=== PATIENT | female | born 1990 | race Two or more races ===

== ENCOUNTER 2019-01-19 17:20 | Day surgery (SDC) | payer OTHER ==
[2019-01-19 18:03] VITALS: BMI 46.4
[2019-01-19 19:39] LABS: Bilirubin Negative (Negative); Blood, Urine Negative (Negative); Clarity CLEAR (Clear); Glucose, Urine (Dipstick) Negative (Negative); Leukocyte Negative (Negative); Nitrite Negative (Negative); Protein, Urine (Dipstick) Negative (Neg-Trace); Specific Gravity, Urine 1.028 (1.002-1.036)
[2019-01-19 19:41] LABS: Bacteria/HPF None Seen HPF (None Seen); Hyaline Casts/LPF 4-6 HYALINE CAST LPF (0-3 Hyaline); Pathc Cast-AUWi Flag 1.22 (0-2.49); RBC/HPF 0-3 HPF (0-3); Squamous Epithelial 0-3 HPF (0-3); WBC/HPF 0-3 HPF (0-3)
[2019-01-19 20:03] LABS: FFN Internal QC Analyzer PASS (PASS); FFN Internal QC Cassette PASS (PASS); Fetal Fibronectin Negative (Negative)
--- NOTE | 2019-01-20 02:01 | ER ---
DATE OF SERVICE: 01/20/2019 PRIMARY MANAGER OF SECURITY: Dr. Joshua Valenzuela. CHIEF COMPLAINT: Abdominal pains. HISTORY OF PRESENT ILLNESS: The patient is a 28-year-old, G3, P2 female with an intrauterine at 24 weeks and 5 days, who left work early today because of worsening abdominal pains. The patient reports that she has been experiencing abdominal pains, concerning to her for uterine contractions. The patient reports that she has a history of labor with her prior , but resulting in a post-term delivery. The patient reports that as the day progressed, her pain just continued to worsen, and states that they have been lasting a minute or so and the bad ones have been 2 to 3 an hour. The patient denies any recent illness, fever, fall, headache, chest pain, shortness of breath, nausea, vomiting, diarrhea, or constipation. She denies any new rashes, hip problems, knee problems, or muscle weakness. She denies any change in discharge, any vaginal bleeding, any urinary urgency or frequency. PAST MEDICAL HISTORY: History of seizures, but off medication for two years. Anemia. PAST SURGICAL HISTORY: Negative. SOCIAL HISTORY: Denies drug, alcohol, or tobacco use. ALLERGIES: LATEX. MEDICATIONS: vitamins. OBSTETRIC LABS: Unavailable at the time of dictation. REVIEW OF SYSTEMS: Per HPI. PHYSICAL EXAMINATION: VITAL SIGNS: Blood pressure 123/76, heart rate of 90, respiratory rate of 18, saturating 95% on room air, temperature 98.7. GENERAL: She appears to be in no acute distress. She is alert and oriented, cooperative, and pleasant to interact with. HEAD: Normocephalic and atraumatic. LUNGS: Clear to auscultation bilaterally. HEART: Has regular rate and rhythm. ABDOMEN: Soft, gravid, nontender. EXTREMITIES: Nontender, nonedematous. She has no CVA tenderness. She does have some SI joint tenderness. : Vulva is without masses, lesions, or erythema. Vagina has minimal discharge, but that is white with some granularity to it. Cervix is visibly closed. VPIII and fibronectin were collected. Cervix on digital exam is closed, thick and high. A heart tracing was obtained, baseline in the 150s with moderate long-term variability and appropriate for 24-week . LABORATORY DATA: Show a negative fibronectin. Urinalysis negative for protein, nitrites, leukocyte esterase, white blood cells, squamous cells, or bacteria. VPIII was collected and was positive for evidence of Gardnerella. No evidence of Trichomonas or Jocelyn. Tocometer shows about 2 or 3 possibly sporadic contractions over an hour and a half. ASSESSMENT AND PLAN: The patient is a 28-year-old female, G3, P2, with an intrauterine at 24 weeks and 5 days, with a history of labor in her previous , who presented today with complaints of abdominal pains. Fetus is reassuring for gestational age. There is no evidence of labor. She does have bacterial vaginosis by evidence on her VPIII, which we will be contacting her to give her those results. The patient has been hydrated by p.o. intake and has been encouraged to maintain good hydration. She has been given instructions to follow up with her primary OB as scheduled. We will be contacting her over the phone before I leave in the morning with the findings of her VPIII results. The patient has been given labor precautions. Job ID: [id number]
--- NOTE | 2019-01-20 18:22 | PDOC.EVN ---
Event Note - Event Note Event Note: +BV on VP3. RX for Flagyl 250 TID x 7 days called to [facility], . Pt. notified at [phone].
== END 2019-01-19 20:20 | disposition home or self-care (01) ==
LOC: L&D/OP 17:20
PROVIDERS: ATTEND Obstetrics & Gynecology
DX: O99.89 Other specified diseases and conditions complicating pregnancy, childbirth and the puerperium (principal); R10.9 Unspecified abdominal pain; O23.592 Infection of other part of genital tract in pregnancy, second trimester; B96.89 Other specified bacterial agents as the cause of diseases classified elsewhere; O99.012 Anemia complicating pregnancy, second trimester; Z3A.24 24 weeks gestation of pregnancy; Z87.51 Personal history of pre-term labor; Z79.899 Other long term (current) drug therapy; Z91.040 Latex allergy status
CPT/HCPCS: 81001; 82731; 87480; 87510; 87660; 99285

== ENCOUNTER 2019-02-23 09:16 | Emergency (ER) | payer OTHER | END 2019-02-23 10:19 | disposition home or self-care (01) | LOC: ERS 09:16 | DX: O99.513 Diseases of the respiratory system complicating pregnancy, third trimester (principal); J06.9 Acute upper respiratory infection, unspecified; J45.909 Unspecified asthma, uncomplicated; O16.3 Unspecified maternal hypertension, third trimester; O99.353 Diseases of the nervous system complicating pregnancy, third trimester; G40.909 Epilepsy, unspecified, not intractable, without status epilepticus; Z3A.30 30 weeks gestation of pregnancy | CPT/HCPCS: 99283 ==

== ENCOUNTER 2019-04-18 05:30 | Inpatient (IN) | payer OTHER ==
--- NOTE | 2019-04-17 19:22 | PDOC.LDHP ---
Labor and Delivery H&P Chief complaint: scheduled induction HPI: 28 y/o at 38 and 0/7 weeks for term medical induction of labor for CHTN. Current gestational age (weeks): 38 Due date: 05/01/19 Grav: 3 Para: 2 Current complications: hypertension Abnormal US findings: No Current medications: pre- vitamins Previous surgical history: none Allergies/Adverse Reactions: Allergies Allergy/AdvReac Type Severity Reaction Status Date / Time Latex, Natural Rubber Allergy Rash Verified 04/09/19 07:15 Social history: none - Physical Exam Vital signs reviewed and normal: yes General: NAD Heart: RRR Lungs: CTAB Abdomen: gravid Extremeties: no edema FHT: category 1 - Assessment L&D Assessment: medically indicated induction - Plan Plan: admit to L&D, cervical ripening
[~2019-04-18 05:30] MED LIST: Lidocaine 1% (PF) 30 ML VIAL SC PRN; NS / Oxytocin 40 units/1000ml 1,000 ML IV PRN; NS w/ Oxytocin 10 units 500 ML IV SCH; Penicillin G Potassium 5 MILL.UNITS in Sodium Chloride 0.9% 100 ML IVPB SCH; Promethazine HCl 25 MG/ML VIAL IM PRN; Zolpidem Tartrate 5 MG TAB PO PRN; hydrALAZINE 20 MG/ML VIAL SLOW IVP PRN
[2019-04-18] MEDS: Lactated Ringer's 1,000 ML IV SCH ×3 (07:45→16:29)
[2019-04-18 07:53] VITALS: BMI 46.9
[2019-04-18 08:13] LABS: Hemoglobin 11.5 g/dL (12.0-16.0); Mean Corpuscular HGB CONC 33.3 g/dL (32.0-36.0); Mean Corpuscular Hemoglobin 29.9 pg (27.0-31.0); Mean Corpuscular Volume 89.7 fL (78.0-98.0); Mean Platelet Volume 8.8 fL (7.4-10.4); Platelet Count 330 thou/uL (130-400); Red Blood Cell (RBC) Count 3.84 mill/uL (4.20-5.40); White Blood Cell (WBC) Count 9.1 thou/uL (4.8-10.8)
[2019-04-18] MEDS: NS w/ Oxytocin 10 units 500 ML IV SCH ×2 (08:34→20:52)
[2019-04-18 08:47] LABS: HBSAg Index 0.23 S/CO (0-0.99); Hep B Surf Ag Non-Reactive S/CO (NonReactive)
[2019-04-18 08:48] LABS: Syphilis Antibody Nonreactive (Nonreactive); Syphilis Antibody Index 0.03 S/CO (<1.00 Non-Reactive)
[2019-04-18] MEDS: Butorphanol Tartrate 1 MG/ML VIAL SLOW IVP PRN ×2 (12:09→14:06)
[2019-04-18] MEDS: Penicillin G 2.5 MILL.units 2.5 MILL.UNITS in Premix Bag 1 BAG IVPB SCH ×3 (12:30→20:58)
[2019-04-18] MEDS: Ondansetron PF 4 MG/2 ML Vial IVP PRN ×2 (14:56→21:33)
[2019-04-18] MEDS ORDERED: Fentanyl 4 mcg/Bup 0.1% Cadd 100 ML ONE (16:43)
[2019-04-19] MEDS ORDERED: Fentanyl 4 mcg/Bup 0.1% Cadd 100 ML ONE (00:02)
[2019-04-19] MEDS: Penicillin G 2.5 MILL.units 2.5 MILL.UNITS in Premix Bag 1 BAG IVPB SCH (01:03)
[2019-04-19] MEDS ORDERED: Misoprostol 200 MCG TAB VAG PRN (01:50)
[2019-04-19] MEDS ORDERED: Ondansetron PF 4 MG/2 ML Vial IVP PRN (01:50)
[2019-04-19] MEDS ORDERED: Bisacodyl 10 MG SUPP PR PRN (01:50)
[2019-04-19] MEDS ORDERED: NS / Oxytocin 40 units/1000ml 1,000 ML IV SCH (01:50)
[2019-04-19] MEDS ORDERED: Lanolin Ointment 7 GM TUBE TOP PRN (01:50)
[2019-04-19] MEDS ORDERED: Promethazine HCl 25 MG/ML VIAL IM PRN (01:50)
[2019-04-19] MEDS ORDERED: Preparation H Ointment 28 GM TUBE PR PRN (01:50)
[2019-04-19] MEDS ORDERED: diphenhydrAMINE 25 MG CAP PO PRN (01:50)
[2019-04-19] MEDS ORDERED: Milk Of Magnesia 30 ML UDCUP PO PRN (01:50)
[2019-04-19] MEDS ORDERED: hydrALAZINE 20 MG/ML VIAL SLOW IVP PRN (01:50)
[2019-04-19] MEDS: Ibuprofen 800 MG TAB PO SCH ×3 (02:13→20:52)
[2019-04-19] MEDS: HYDROcodone/Acetaminophen 5/325 mg Tablet PO PRN ×3 (03:51→20:52)
[2019-04-19] MEDS: Cyclobenzaprine 10 MG TAB PO PRN ×3 (06:31→18:36)
[2019-04-19 07:12] LABS: #Basophils 0.1 thou/uL (0.0-0.2); #Eosinphils 0.1 thou/uL (0.0-0.7); #Lymphocytes 2.8 thou/uL (1.20-3.40); #Monocytes 0.8 thou/uL (0.11-0.59); #Neutrophils 9.1 thou/uL (1.40-6.50); %Basophils 0.5 % (0.0-1.0); %Eosinophils 0.8 % (0.0-10.0); %Lymphocytes 21.4 % (21.0-51.0); %Monocytes 6.3 % (0.0-10.0); Hemoglobin 12.3 g/dL (12.0-16.0); Mean Corpuscular Hemoglobin 29.7 pg (27.0-31.0); Mean Corpuscular Volume 89.8 fL (78.0-98.0); Mean Platelet Volume 8.6 fL (7.4-10.4); Platelet Count 328 thou/uL (130-400); Red Blood Cell (RBC) Count 4.14 mill/uL (4.20-5.40); White Blood Cell (WBC) Count 12.8 thou/uL (4.8-10.8)
[2019-04-19] MEDS: Docusate Calcium (SURFAK) 240 MG CAP PO SCH ×2 (07:45→20:52)
[2019-04-19] MEDS: Ferrous Sulfate 325 MG TAB PO SCH ×2 (07:51→18:19)
[2019-04-19] MEDS ORDERED: Measles/Mumps/Rubella 10 MCG/0.5 ML VIAL SC ONE (09:00)
[2019-04-19] MEDS ORDERED: Adacel (T-DAP) 0.5 ML SYRINGE IM ONE (09:00)
[2019-04-19] MEDS ORDERED: Varicella virus, LIVE 0.5 ML VIAL SC ONE (09:00)
[2019-04-20] MEDS: HYDROcodone/Acetaminophen 5/325 mg Tablet PO PRN ×2 (01:54→11:54)
[2019-04-20] MEDS: Ibuprofen 800 MG TAB PO SCH ×2 (05:29→14:25)
--- NOTE | 2019-04-20 07:17 | PDOC.PP ---
Post Progress Note Post Day #: 1 PO intake tolerated: yes Flatus: yes Ambulation: yes Vital Signs (12 hours) Temp Pulse Resp BP Pulse Ox 04/20/19 00:00 98.6 F 84 16 141/71 H 04/19/19 21:00 98.4 F 82 16 135/69 100 Weight Weight 265 lb - Physical Examination General: NAD Cardiovascular: no m/r/g, RRR Respiratory: clear to auscultation bilaterally Abdominal: + bowel sounds, lochia, no distention Extremities: negative homans (B) Neurological: no gross focal deficits (DC home in am) Psychiatric: A&Ox3, normal affect Result Diagrams: 04/19/19 06:30 Additional Labs: Post Labs Blood Type O POSITIVE 04/18/19 08:20 Hep Bs Antigen Non-Reactive S/CO (NonReactive) 04/18/19 08:00
[2019-04-20] MEDS: Docusate Calcium (SURFAK) 240 MG CAP PO SCH (07:59)
[2019-04-20] MEDS: Cyclobenzaprine 10 MG TAB PO PRN (08:02)
[2019-04-20 08:10] VITALS: BP 130/88; TEMP 97.9
[2019-04-20] MEDS: Ferrous Sulfate 325 MG TAB PO SCH (10:20)
== END 2019-04-20 15:50 | disposition home or self-care (01) | DRG 807 ==
LOC: L&D 06:34 → 3SW 04-19 04:24
PROVIDERS: ADMIT Obstetrics & Gynecology; ATTEND Obstetrics & Gynecology
PROC: 10E0XZZ Delivery of Products of Conception, External Approach (ICD-10-PCS; principal; 2019-04-19)
PROC: 3E0P7VZ Introduction of Hormone into Female Reproductive, Via Natural or Artificial Opening (ICD-10-PCS; 2019-04-19)
PROC: 10H07YZ Insertion of Other Device into Products of Conception, Via Natural or Artificial Opening (ICD-10-PCS; 2019-04-19)
PROC: 4A1H7CZ Monitoring of Products of Conception, Cardiac Rate, Via Natural or Artificial Opening (ICD-10-PCS; 2019-04-19)
PROC: 10907ZC Drainage of Amniotic Fluid, Therapeutic from Products of Conception, Via Natural or Artificial Opening (ICD-10-PCS; 2019-04-19)
DX: O10.92 Unspecified pre-existing hypertension complicating childbirth (principal); Z37.0 Single live birth; Z3A.38 38 weeks gestation of pregnancy; Z91.040 Latex allergy status; O99.214 Obesity complicating childbirth; E66.01 Morbid (severe) obesity due to excess calories
CPT/HCPCS: 36415; 51702; 85025; 85027; 86780; 86850; 86900; 86901; 87340; 90715; J0360; J0595; J2405; J2540; J2590; J3490; Q0163

== ENCOUNTER → 2019-04-22 | Day surgery (SDC) | payer OTHER | LOC: EDSTATUS 01:35 → SDC/OP 11:16 → ERS 11:16 → ER/OP 11:16 | PROVIDERS: ATTEND Anesthesiology | PROC: 3E0S3GC Introduction of Other Therapeutic Substance into Epidural Space, Percutaneous Approach (ICD-10-PCS; principal; 2019-04-22) | DX: G97.1 Other reaction to spinal and lumbar puncture (principal); Z91.040 Latex allergy status; Z88.5 Allergy status to narcotic agent | CPT/HCPCS: 62272 ==

== ENCOUNTER 2021-01-16 18:43 | Inpatient (IN) | payer OTHER, SELFPAY ==
[~2021-01-16 18:43] MED LIST changes: +Iopamidol-370 76% 500 ML 1 ML ONE; -Lidocaine 1% (PF) 30 ML VIAL SC PRN; -NS / Oxytocin 40 units/1000ml 1,000 ML IV PRN; -NS w/ Oxytocin 10 units 500 ML IV SCH; -Penicillin G Potassium 5 MILL.UNITS in Sodium Chloride 0.9% 100 ML IVPB SCH; -Promethazine HCl 25 MG/ML VIAL IM PRN; -Zolpidem Tartrate 5 MG TAB PO PRN; -hydrALAZINE 20 MG/ML VIAL SLOW IVP PRN
[2021-01-16 19:34] LABS: #Lymphocytes 1.3 thou/uL (1.20-3.40); #Monocytes 0.3 thou/uL (0.11-0.59); #Neutrophils 2.9 thou/uL (1.40-6.50); %Basophils 0.4 % (0.0-1.0); %Eosinophils 0.1 % (0.0-10.0); %Lymphocytes 29.3 % (21.0-51.0); %Monocytes 6.2 % (0.0-10.0); Hemoglobin 13.9 g/dL (12.0-16.0); Mean Corpuscular HGB CONC 33.4 g/dL (32.0-36.0); Mean Corpuscular Volume 89.8 fL (78.0-98.0); Mean Platelet Volume 8.1 fL (7.4-10.4); Platelet Count 301 thou/uL (130-400); RBC Distribution Width 12.1 % (11.5-14.5); Red Blood Cell (RBC) Count 4.64 mill/uL (4.20-5.40); White Blood Cell (WBC) Count 4.5 thou/uL (4.8-10.8)
[2021-01-16 19:44] LABS: PTT 30.3 sec (22.9-36.1); Prothrombin Time 13.5 sec (12.0-14.7)
[2021-01-16 19:46] LABS: ALT (SGPT) 51 U/L (8-55); AST (SGOT) 64 U/L (5-34); Albumin 3.4 g/dL (3.5-5.0); Alkaline Phosphatase 87 U/L (40-110); Anion Gap 16 mmol/L (10-20); BUN (Urea Nitrogen) 6 mg/dL (7.0-18.7); Bilirubin, Total 0.4 mg/dL (0.2-1.2); Calc. Creatinine Clearance 0 mL/min (70-130); Calcium 8.1 mg/dL (7.8-10.44); Carbon Dioxide 20 mmol/L (22-29); Chloride 101 mmol/L (98-107); Globulin 4.1 g/dL (2.4-3.5); Glucose 114 mg/dL (70-105); Potassium 3.3 mmol/L (3.5-5.1); Protein, Total 7.5 g/dL (6.0-8.3); Sodium 134 mmol/L (136-145)
[2021-01-16] MEDS ORDERED: cefTRIAXone\\ROCEPHIN 2 GM VIAL ONE (19:47)
[2021-01-16] MEDS ORDERED: Acetaminophen 325 MG TAB ONE (19:47)
[2021-01-16] MEDS ORDERED: Promethazine HCl 25 MG/ML VIAL ONE (19:47)
[2021-01-16] MEDS ORDERED: Dexamethasone 10 MG/ML VIAL ONE (19:47)
[2021-01-16 19:59] LABS: BHCG - Serum Negative (NEGATIVE); Pregs Control Background? CLEAR/WHITE (CLR/WHITE); Pregs Control Bar Appear? YES (CONTROL BAR)
[2021-01-16 20:55] LABS: Bilirubin Negative (Negative); Blood, Urine 1+ (Negative); Clarity Turbid (Clear); Glucose, Urine (Dipstick) Normal (Negative); Ketone, Urine Negative (Negative); Leukocyte Negative Leu/uL (Negative); Nitrite Negative (Negative); Protein, Urine (Dipstick) 100 mg/dL (Neg-Trace); Specific Gravity, Urine 1.023 (1.002-1.036); pH, Urine 6.5 (5.0-9.0)
[2021-01-16] MEDS ORDERED: Ketorolac Tromethamine 30 MG/ML VIAL ONE (20:56)
[2021-01-16] MEDS ORDERED: Azithromycin 500 MG VIAL ONE (20:59)
[2021-01-16 21:04] LABS: RBC/HPF 0-3 HPF (0-3)
[2021-01-16 21:05] LABS: Bacteria/HPF 2+ HPF (None Seen); Squamous Epithelial 21-50 HPF (0-3)
[2021-01-16] MEDS ORDERED: Potassium Chloride 20 MEQ in Premix Bag 1 BAG IVPB SCH (23:45)
[2021-01-16] MEDS ORDERED: Acetaminophen 650 MG Suppository PR PRN (23:58)
[2021-01-17] MEDS ORDERED: Albuterol Sulfate 2.5 mg/3 ml Neb NEB PRN (00:07)
[2021-01-17 01:09] VITALS: BMI 49.1
[2021-01-17] MEDS: Sodium Chloride 0.9% 1,000 ML IV SCH ×3 (01:16→21:05)
[2021-01-17] MEDS: Acetaminophen 325 MG TAB PO PRN ×3 (02:10→20:20)
[2021-01-17] MEDS: Benzonatate 100 MG CAP PO PRN ×3 (02:10→19:54)
[2021-01-17 06:50] LABS: #Lymphocytes 0.9 thou/uL (1.20-3.40); #Monocytes 0.2 thou/uL (0.11-0.59); #Neutrophils 1.6 thou/uL (1.40-6.50); %Basophils 0.1 % (0.0-1.0); %Eosinophils 0.2 % (0.0-10.0); %Lymphocytes 31.7 % (21.0-51.0); %Monocytes 7.8 % (0.0-10.0); %Neutrophils 60.2 % (42.0-75.0); Hemoglobin 13.4 g/dL (12.0-16.0); Mean Corpuscular HGB CONC 32.8 g/dL (32.0-36.0); Mean Corpuscular Hemoglobin 29.7 pg (27.0-31.0); Mean Corpuscular Volume 90.4 fL (78.0-98.0); Mean Platelet Volume 8.1 fL (7.4-10.4); Platelet Count 263 thou/uL (130-400); RBC Distribution Width 12.3 % (11.5-14.5); White Blood Cell (WBC) Count 2.7 thou/uL (4.8-10.8)
[2021-01-17 06:58] LABS: Anion Gap 16 mmol/L (10-20); BUN (Urea Nitrogen) 6 mg/dL (7.0-18.7); Calc. Creatinine Clearance 282 mL/min (70-130); Calcium 7.6 mg/dL (7.8-10.44); Carbon Dioxide 19 mmol/L (22-29); Chloride 107 mmol/L (98-107); Glucose 123 mg/dL (70-105); Potassium 4.3 mmol/L (3.5-5.1); Sodium 138 mmol/L (136-145)
[2021-01-17] MEDS: Ascorbic Acid 500 mg Chewable Tablet PO SCH (08:12)
[2021-01-17] MEDS: Zinc Sulfate 220 MG CAP PO SCH (08:13)
[2021-01-17] MEDS: Dexamethasone 4 mg/ml Vial SLOW IVP SCH (08:13)
[2021-01-17] MEDS: Famotidine/PF 20 mg/2ml Vial SLOW IVP SCH ×2 (08:13→20:01)
[2021-01-17] MEDS ORDERED: REMDESIVIR (EUA) 200 MG in Sodium Chloride 0.9% 250 ML 210 ML IV SCH (09:00)
[2021-01-17] MEDS ORDERED: Enoxaparin Sodium 40 MG/0.4 ML SYRINGE SC SCH (09:00)
[2021-01-17] MEDS: guaiFENesin/Codeine 200 mg/20 mg 10 ml Cup PO PRN ×3 (10:48→22:45)
[2021-01-17] MEDS: traMADol HCl 50 MG TAB PO PRN ×2 (10:48→19:51)
[2021-01-17] MEDS: Albuterol 200 PUFF (6.7GM INHALER) INH PRN ×2 (13:25→19:50)
[2021-01-17] MEDS ORDERED: Ketorolac Tromethamine 30 MG/ML VIAL IVP SCH (13:30)
[2021-01-17] MEDS: Ondansetron PF 4 MG/2 ML Vial IVP PRN (15:01)
[2021-01-17] MEDS: Enoxaparin Sodium 40 MG/0.4 ML SYRINGE SC SCH (20:01)
[2021-01-17] MEDS: cefTRIAXone\\ROCEPHIN 1 GM in Sodium Chloride 0.9% 100 ML IVPB SCH (20:01)
[2021-01-17] MEDS ORDERED: Sodium Chloride 0.9% 500 ML IV SCH (20:30)
[2021-01-17] MEDS ORDERED: Lorazepam 2 MG/ML VIAL ONE (20:33)
[2021-01-17 20:35] LABS: Actual Bicarbonate (HCO3a) 21.7 mEq/L (22-28); Base Excess (BEa) -1.1 mEq/L (-2.0 to +3.0); CO2 Tension 30.9 mmHg (35.0-45.0); Calcium, Ionized (arterial) 1.12 mmol/L (1.12-1.30); Carboxyhemoglobin (COHb) 0.5 gm% (0.0-3.0); Hemoglobin (Hb) 13.3 g/dL (12.0-16.0); Potassium - ABG Lab 3.38 mmol/L (3.70-5.30); pH, Arterial 7.47 (7.35-7.45)
[2021-01-17 20:36] LABS: O2 Tension (PaO2), arterial 44.5 mmHg (80.0-100.0)
[2021-01-17 20:37] LABS: Puncture Site RRA
[2021-01-17 20:38] LABS: ALV-art Gradient 173.555 mmHg (0-20)
[2021-01-17 20:56] LABS: #Lymphocytes 1.2 thou/uL (1.20-3.40); #Monocytes 0.4 thou/uL (0.11-0.59); #Neutrophils 5.4 thou/uL (1.40-6.50); %Basophils 0.6 % (0.0-1.0); %Eosinophils 0.1 % (0.0-10.0); %Lymphocytes 16.5 % (21.0-51.0); %Monocytes 4.9 % (0.0-10.0); %Neutrophils 77.8 % (42.0-75.0); Hemoglobin 13.4 g/dL (12.0-16.0); Mean Corpuscular HGB CONC 32.9 g/dL (32.0-36.0); Mean Corpuscular Hemoglobin 29.9 pg (27.0-31.0); Mean Corpuscular Volume 90.9 fL (78.0-98.0); Platelet Count 311 thou/uL (130-400); RBC Distribution Width 12.1 % (11.5-14.5); Red Blood Cell (RBC) Count 4.49 mill/uL (4.20-5.40)
[2021-01-17] MEDS ORDERED: Potassium Chloride 20 MEQ in Premix Bag 1 BAG IVPB SCH (21:00)
[2021-01-17] MEDS ORDERED: Lorazepam 2 MG/ML VIAL SLOW IVP SCH (21:00)
[2021-01-17] MEDS ORDERED: ALPRAZolam 0.5 MG TAB PO SCH (21:00)
[2021-01-17] MEDS: Azithromycin 500 MG in Sodium Chloride 0.9% 250 ML 250 ML IVPB SCH (21:02)
[2021-01-17 21:11] LABS: Lactic Acid 1.4 mmol/L (0.5-2.2)
[2021-01-17 21:15] LABS: Anion Gap 14 mmol/L (10-20); Carbon Dioxide 20 mmol/L (22-29); Chloride 108 mmol/L (98-107); Magnesium 1.8 mg/dL (1.6-2.6); Potassium 3.5 mmol/L (3.5-5.1); Sodium 138 mmol/L (136-145)
[2021-01-18] MEDS: Albuterol 200 PUFF (6.7GM INHALER) INH PRN ×5 (01:00→15:00)
[2021-01-18] MEDS: Acetaminophen 325 MG TAB PO PRN (01:30)
[2021-01-18] MEDS: Benzonatate 100 MG CAP PO PRN ×2 (02:01→20:56)
[2021-01-18] MEDS: guaiFENesin/Codeine 200 mg/20 mg 10 ml Cup PO PRN ×3 (05:39→20:56)
[2021-01-18] MEDS: traMADol HCl 50 MG TAB PO PRN ×3 (05:52→20:56)
[2021-01-18] MEDS: Ascorbic Acid 500 mg Chewable Tablet PO SCH (09:18)
[2021-01-18] MEDS: Famotidine/PF 20 mg/2ml Vial SLOW IVP SCH ×2 (09:18→20:57)
[2021-01-18] MEDS: Enoxaparin Sodium 40 MG/0.4 ML SYRINGE SC SCH ×2 (09:19→21:00)
[2021-01-18] MEDS: Zinc Sulfate 220 MG CAP PO SCH (09:19)
[2021-01-18] MEDS: Dexamethasone 4 mg/ml Vial SLOW IVP SCH (09:21)
[2021-01-18] MEDS: REMDESIVIR (EUA) 100 MG in Sodium Chloride 0.9% 250 ML 230 ML IV SCH (10:08)
[2021-01-18] MEDS: Morphine 2 MG/ML VIAL SLOW IVP PRN ×2 (14:55→18:51)
[2021-01-18] MEDS: cefTRIAXone\\ROCEPHIN 1 GM in Sodium Chloride 0.9% 100 ML IVPB SCH (20:57)
[2021-01-18] MEDS: Azithromycin 500 MG in Sodium Chloride 0.9% 250 ML 250 ML IVPB SCH (21:00)
[2021-01-19] MEDS: Morphine 2 MG/ML VIAL SLOW IVP PRN ×4 (02:53→22:20)
[2021-01-19] MEDS: Famotidine/PF 20 mg/2ml Vial SLOW IVP SCH ×2 (08:30→20:24)
[2021-01-19] MEDS: Dexamethasone 4 mg/ml Vial SLOW IVP SCH (08:30)
[2021-01-19] MEDS: Enoxaparin Sodium 40 MG/0.4 ML SYRINGE SC SCH ×2 (08:31→20:24)
[2021-01-19] MEDS: Ascorbic Acid 500 mg Chewable Tablet PO SCH (08:31)
[2021-01-19] MEDS: Zinc Sulfate 220 MG CAP PO SCH (08:32)
[2021-01-19] MEDS: REMDESIVIR (EUA) 100 MG in Sodium Chloride 0.9% 250 ML 230 ML IV SCH (09:56)
[2021-01-19] MEDS: guaiFENesin/Codeine 200 mg/20 mg 10 ml Cup PO PRN ×2 (10:38→17:38)
[2021-01-19 17:04] LABS: Hemoglobin 13.9 g/dL (12.0-16.0); Mean Corpuscular Hemoglobin 30.1 pg (27.0-31.0); Mean Corpuscular Volume 91.2 fL (78.0-98.0); Mean Platelet Volume 8.5 fL (7.4-10.4); Platelet Count 99 thou/uL (130-400); RBC Distribution Width 12.4 % (11.5-14.5); Red Blood Cell (RBC) Count 4.63 mill/uL (4.20-5.40); White Blood Cell (WBC) Count 7.1 thou/uL (4.8-10.8)
[2021-01-19] MEDS: cefTRIAXone\\ROCEPHIN 1 GM in Sodium Chloride 0.9% 100 ML IVPB SCH (20:29)
[2021-01-19] MEDS: Benzonatate 100 MG CAP PO PRN (20:32)
[2021-01-19 20:45] LABS: Troponin I 0.013 ng/mL (< 0.028)
[2021-01-19] MEDS: Azithromycin 500 MG in Sodium Chloride 0.9% 250 ML 250 ML IVPB SCH (21:44)
[2021-01-19] MEDS ORDERED: Enoxaparin Sodium 80 MG/0.8 ML SYRINGE SC SCH ×2 (22:30)
[2021-01-19] MEDS: Ondansetron PF 4 MG/2 ML Vial IVP PRN (22:57)
[2021-01-19 23:49] LABS: Troponin I 0.012 ng/mL (< 0.028)
[2021-01-20] MEDS: guaiFENesin/Codeine 200 mg/20 mg 10 ml Cup PO PRN ×4 (00:21→23:00)
[2021-01-20] MEDS: Morphine 2 MG/ML VIAL SLOW IVP PRN ×3 (06:04→21:59)
[2021-01-20 09:24] LABS: Base Excess (BEa) 1.5 mEq/L (-2.0 to +3.0); CO2 Tension 35.8 mmHg (35.0-45.0); Calcium, Ionized (arterial) 1.13 mmol/L (1.12-1.30); Carboxyhemoglobin (COHb) 0.5 gm% (0.0-3.0); Hemoglobin (Hb) 13.6 g/dL (12.0-16.0); Potassium - ABG Lab 3.37 mmol/L (3.70-5.30); pH, Arterial 7.46 (7.35-7.45)
[2021-01-20 09:25] LABS: O2 Tension (PaO2), arterial 46.6 mmHg (80.0-100.0)
[2021-01-20 09:26] LABS: Puncture Site LRA
[2021-01-20] MEDS: Enoxaparin Sodium 120 MG/0.8 ML SYRINGE SC SCH ×2 (09:34→21:49)
[2021-01-20] MEDS: Dexamethasone 4 mg/ml Vial SLOW IVP SCH (09:35)
[2021-01-20] MEDS: Ascorbic Acid 500 mg Chewable Tablet PO SCH (09:35)
[2021-01-20] MEDS: Zinc Sulfate 220 MG CAP PO SCH (09:35)
[2021-01-20] MEDS: Famotidine/PF 20 mg/2ml Vial SLOW IVP SCH ×2 (09:37→20:58)
[2021-01-20] MEDS ORDERED: Iopamidol-370 76% 500 ML 1 ML ONE (09:40)
[2021-01-20] MEDS: REMDESIVIR (EUA) 100 MG in Sodium Chloride 0.9% 250 ML 230 ML IV SCH (09:50)
[2021-01-20 10:14] LABS: Hemoglobin 13.6 g/dL (12.0-16.0); Mean Corpuscular HGB CONC 33.6 g/dL (32.0-36.0); Mean Corpuscular Hemoglobin 30.4 pg (27.0-31.0); Mean Corpuscular Volume 90.4 fL (78.0-98.0); Mean Platelet Volume 7.8 fL (7.4-10.4); Platelet Count 247 thou/uL (130-400); RBC Distribution Width 12.3 % (11.5-14.5); Red Blood Cell (RBC) Count 4.46 mill/uL (4.20-5.40); White Blood Cell (WBC) Count 9.4 thou/uL (4.8-10.8)
[2021-01-20 10:34] LABS: ALT (SGPT) 47 U/L (8-55); AST (SGOT) 64 U/L (5-34); Albumin 2.9 g/dL (3.5-5.0); Alkaline Phosphatase 88 U/L (40-110); BUN (Urea Nitrogen) 12 mg/dL (7.0-18.7); Bilirubin, Total 0.4 mg/dL (0.2-1.2); Calc. Creatinine Clearance 287 mL/min (70-130); Calcium 7.8 mg/dL (7.8-10.44); Carbon Dioxide 21 mmol/L (22-29); Chloride 107 mmol/L (98-107); Globulin 3.4 g/dL (2.4-3.5); Glucose 90 mg/dL (70-105); Potassium 3.4 mmol/L (3.5-5.1); Protein, Total 6.3 g/dL (6.0-8.3); Sodium 140 mmol/L (136-145)
[2021-01-20 10:50] LABS: Anion Gap 15 mmol/L (10-20)
[2021-01-20] MEDS: traMADol HCl 50 MG TAB PO PRN (11:17)
[2021-01-20] MEDS ORDERED: Potassium Chloride 20 MEQ TAB PO SCH (12:30)
[2021-01-20] MEDS: Benzonatate 100 MG CAP PO PRN ×2 (14:08→21:41)
[2021-01-20] MEDS: Ondansetron PF 4 MG/2 ML Vial IVP PRN (15:45)
[2021-01-20] MEDS ORDERED: Lorazepam 0.5 MG TAB PO PRN (19:22)
[2021-01-20] MEDS: cefTRIAXone\\ROCEPHIN 1 GM in Sodium Chloride 0.9% 100 ML IVPB SCH (20:57)
[2021-01-20] MEDS: Azithromycin 500 MG in Sodium Chloride 0.9% 250 ML 250 ML IVPB SCH (21:48)
[2021-01-21] MEDS: Ondansetron PF 4 MG/2 ML Vial IVP PRN ×2 (00:29→10:00)
[2021-01-21] MEDS: Lorazepam 0.5 MG TAB PO PRN ×2 (01:14→21:19)
[2021-01-21] MEDS: Dexamethasone 4 mg/ml Vial SLOW IVP SCH (09:05)
[2021-01-21] MEDS: Ascorbic Acid 500 mg Chewable Tablet PO SCH (09:06)
[2021-01-21] MEDS: Famotidine/PF 20 mg/2ml Vial SLOW IVP SCH ×2 (09:06→20:11)
[2021-01-21] MEDS: Zinc Sulfate 220 MG CAP PO SCH (09:06)
[2021-01-21] MEDS: Enoxaparin Sodium 120 MG/0.8 ML SYRINGE SC SCH ×2 (09:07→20:11)
[2021-01-21] MEDS: traMADol HCl 50 MG TAB PO PRN ×3 (09:08→20:11)
[2021-01-21] MEDS: guaiFENesin/Codeine 200 mg/20 mg 10 ml Cup PO PRN ×3 (09:08→20:11)
[2021-01-21] MEDS: REMDESIVIR (EUA) 100 MG in Sodium Chloride 0.9% 250 ML 230 ML IV SCH (09:57)
[2021-01-21 10:14] LABS: Potassium 4.4 mmol/L (3.5-5.1)
[2021-01-21] MEDS: Piperacillin/Tazobactam 3.375 GM in Sodium Chloride 0.9% 100 ML IVPB SCH ×3 (13:18→23:54)
[2021-01-21] MEDS: Benzonatate 100 MG CAP PO PRN ×2 (13:18→20:11)
[2021-01-21] MEDS: Morphine 2 MG/ML VIAL SLOW IVP PRN ×2 (16:41→21:16)
[2021-01-21] MEDS: methylPREDNISolone Sod Succ/PF 125 MG/2 ML VIAL IVP SCH ×2 (17:47→23:55)
[2021-01-22] MEDS: Benzonatate 100 MG CAP PO PRN ×3 (00:25→21:08)
[2021-01-22 01:07] LABS: Bacteria/HPF None Seen HPF (None Seen); Bilirubin Negative (Negative); Blood, Urine Negative (Negative); Clarity Clear (Clear); Glucose, Urine (Dipstick) Normal (Negative); Ketone, Urine Negative (Negative); Leukocyte Negative Leu/uL (Negative); Nitrite Negative (Negative); Protein, Urine (Dipstick) Negative (Neg-Trace); RBC/HPF 0-3 HPF (0-3); Specific Gravity, Urine 1.017 (1.002-1.036); Urobilinogen Normal mg/dL (Less than 2); WBC/HPF 0-3 HPF (0-3)
[2021-01-22 01:08] LABS: Urine Culture Reflex No No
[2021-01-22] MEDS: guaiFENesin/Codeine 200 mg/20 mg 10 ml Cup PO PRN ×3 (01:57→21:08)
[2021-01-22] MEDS: Morphine 2 MG/ML VIAL SLOW IVP PRN ×5 (02:09→23:27)
[2021-01-22] MEDS: Piperacillin/Tazobactam 3.375 GM in Sodium Chloride 0.9% 100 ML IVPB SCH ×4 (05:24→23:26)
[2021-01-22] MEDS: methylPREDNISolone Sod Succ/PF 125 MG/2 ML VIAL IVP SCH ×4 (05:26→23:27)
[2021-01-22 07:05] LABS: Hemoglobin 13.8 g/dL (12.0-16.0); Mean Corpuscular HGB CONC 33.3 g/dL (32.0-36.0); Mean Corpuscular Hemoglobin 30.1 pg (27.0-31.0); Mean Corpuscular Volume 90.4 fL (78.0-98.0); Mean Platelet Volume 8.3 fL (7.4-10.4); Platelet Count 302 thou/uL (130-400); RBC Distribution Width 12.2 % (11.5-14.5); Red Blood Cell (RBC) Count 4.58 mill/uL (4.20-5.40); White Blood Cell (WBC) Count 9.3 thou/uL (4.8-10.8)
[2021-01-22 07:30] LABS: ALT (SGPT) 37 U/L (8-55); AST (SGOT) 30 U/L (5-34); Albumin 2.8 g/dL (3.5-5.0); Alkaline Phosphatase 83 U/L (40-110); Bilirubin, Direct 0.2 mg/dL (0.1-0.3); Bilirubin, Total 0.5 mg/dL (0.2-1.2); Protein, Total 6.4 g/dL (6.0-8.3)
[2021-01-22] MEDS: Zinc Sulfate 220 MG CAP PO SCH (08:39)
[2021-01-22] MEDS: Famotidine/PF 20 mg/2ml Vial SLOW IVP SCH ×2 (08:39→21:08)
[2021-01-22] MEDS: Ascorbic Acid 500 mg Chewable Tablet PO SCH (08:39)
[2021-01-22] MEDS: Albuterol 200 PUFF (6.7GM INHALER) INH PRN (11:56)
[2021-01-22] MEDS: Enoxaparin Sodium 120 MG/0.8 ML SYRINGE SC SCH ×2 (12:38→21:08)
[2021-01-22] MEDS: Ondansetron PF 4 MG/2 ML Vial IVP PRN ×2 (15:19→23:27)
[2021-01-22] MEDS: Lorazepam 0.5 MG TAB PO PRN (21:08)
[2021-01-23] MEDS: Lorazepam 0.5 MG TAB PO PRN (01:17)
[2021-01-23] MEDS: Benzonatate 100 MG CAP PO PRN ×2 (01:17→09:42)
[2021-01-23] MEDS: methylPREDNISolone Sod Succ/PF 125 MG/2 ML VIAL IVP SCH ×4 (05:09→23:55)
[2021-01-23] MEDS: Piperacillin/Tazobactam 3.375 GM in Sodium Chloride 0.9% 100 ML IVPB SCH ×4 (05:09→23:56)
[2021-01-23] MEDS: Morphine 2 MG/ML VIAL SLOW IVP PRN ×3 (05:49→17:27)
[2021-01-23] MEDS: Famotidine/PF 20 mg/2ml Vial SLOW IVP SCH ×2 (09:23→20:54)
[2021-01-23] MEDS: Zinc Sulfate 220 MG CAP PO SCH (09:23)
[2021-01-23] MEDS: Ascorbic Acid 500 mg Chewable Tablet PO SCH (09:23)
[2021-01-23] MEDS: Albuterol 200 PUFF (6.7GM INHALER) INH PRN ×2 (09:42→14:00)
[2021-01-23] MEDS: Enoxaparin Sodium 120 MG/0.8 ML SYRINGE SC SCH ×2 (09:42→20:54)
[2021-01-23] MEDS: guaiFENesin/Codeine 200 mg/20 mg 10 ml Cup PO PRN (11:21)
[2021-01-23] MEDS: Acetaminophen 325 MG TAB PO PRN (15:32)
[2021-01-24] MEDS: Morphine 2 MG/ML VIAL SLOW IVP PRN ×4 (01:17→19:55)
[2021-01-24] MEDS: guaiFENesin/Codeine 200 mg/20 mg 10 ml Cup PO PRN ×3 (02:04→19:55)
[2021-01-24] MEDS: Benzonatate 100 MG CAP PO PRN ×3 (02:04→23:49)
[2021-01-24] MEDS: Piperacillin/Tazobactam 3.375 GM in Sodium Chloride 0.9% 100 ML IVPB SCH ×4 (04:51→23:49)
[2021-01-24] MEDS: methylPREDNISolone Sod Succ/PF 125 MG/2 ML VIAL IVP SCH ×2 (04:52→11:02)
[2021-01-24 05:28] LABS: Hemoglobin 12.9 g/dL (12.0-16.0); Mean Corpuscular HGB CONC 32.8 g/dL (32.0-36.0); Mean Corpuscular Hemoglobin 29.8 pg (27.0-31.0); Mean Corpuscular Volume 90.9 fL (78.0-98.0); Mean Platelet Volume 8.5 fL (7.4-10.4); Platelet Count 316 thou/uL (130-400); RBC Distribution Width 12.2 % (11.5-14.5); Red Blood Cell (RBC) Count 4.33 mill/uL (4.20-5.40); White Blood Cell (WBC) Count 13.5 thou/uL (4.8-10.8)
[2021-01-24 05:51] LABS: Anion Gap 10 mmol/L (10-20); BUN (Urea Nitrogen) 15 mg/dL (7.0-18.7); Calc. Creatinine Clearance 264 mL/min (70-130); Calcium 8.1 mg/dL (7.8-10.44); Carbon Dioxide 24 mmol/L (22-29); Chloride 108 mmol/L (98-107); Glucose 144 mg/dL (70-105); Potassium 4.1 mmol/L (3.5-5.1); Sodium 138 mmol/L (136-145)
[2021-01-24] MEDS: Ascorbic Acid 500 mg Chewable Tablet PO SCH (09:21)
[2021-01-24] MEDS: Enoxaparin Sodium 120 MG/0.8 ML SYRINGE SC SCH ×2 (09:21→20:01)
[2021-01-24] MEDS: Zinc Sulfate 220 MG CAP PO SCH (09:22)
[2021-01-24] MEDS: Famotidine/PF 20 mg/2ml Vial SLOW IVP SCH ×2 (09:22→20:01)
[2021-01-24] MEDS: Albuterol 200 PUFF (6.7GM INHALER) INH PRN ×2 (12:15→18:29)
[2021-01-24] MEDS: Acetaminophen 325 MG TAB PO PRN ×2 (17:10→23:49)
[2021-01-24] MEDS: Lorazepam 0.5 MG TAB PO PRN (17:10)
[2021-01-24] MEDS: methylPREDNISolone Sod Succ 40 MG VIAL IVP SCH (20:01)
[2021-01-25] MEDS: Albuterol 200 PUFF (6.7GM INHALER) INH PRN ×2 (00:02→13:00)
[2021-01-25] MEDS: Piperacillin/Tazobactam 3.375 GM in Sodium Chloride 0.9% 100 ML IVPB SCH ×4 (05:22→23:03)
[2021-01-25] MEDS: Morphine 2 MG/ML VIAL SLOW IVP PRN ×3 (05:23→23:02)
[2021-01-25] MEDS: guaiFENesin/Codeine 200 mg/20 mg 10 ml Cup PO PRN (05:23)
[2021-01-25 06:14] LABS: Hemoglobin 13.3 g/dL (12.0-16.0); Mean Corpuscular HGB CONC 33.2 g/dL (32.0-36.0); Mean Corpuscular Hemoglobin 30.1 pg (27.0-31.0); Mean Corpuscular Volume 90.7 fL (78.0-98.0); Mean Platelet Volume 8.4 fL (7.4-10.4); Platelet Count 315 thou/uL (130-400); RBC Distribution Width 12.4 % (11.5-14.5); White Blood Cell (WBC) Count 13.4 thou/uL (4.8-10.8)
[2021-01-25] MEDS: Zinc Sulfate 220 MG CAP PO SCH (09:02)
[2021-01-25] MEDS: methylPREDNISolone Sod Succ 40 MG VIAL IVP SCH ×2 (09:02→21:09)
[2021-01-25] MEDS: Ascorbic Acid 500 mg Chewable Tablet PO SCH (09:02)
[2021-01-25] MEDS: Famotidine/PF 20 mg/2ml Vial SLOW IVP SCH ×2 (09:03→21:09)
[2021-01-25] MEDS: Enoxaparin Sodium 120 MG/0.8 ML SYRINGE SC SCH ×2 (09:03→21:13)
[2021-01-25] MEDS: Benzonatate 100 MG CAP PO PRN ×2 (13:47→21:09)
[2021-01-25] MEDS ORDERED: Dextrose 5% in Water 1,000 ML IV PRN (14:54)
[2021-01-25] MEDS ORDERED: Dextrose 50% Abboject 50 ML SYRINGE SLOW IVP PRN (14:54)
[2021-01-25] MEDS ORDERED: HumaLOG 300 UNITS/3 ML VIAL SC PRN (14:54)
[2021-01-25] MEDS: traMADol HCl 50 MG TAB PO PRN (16:09)
[2021-01-25] MEDS: traZODone HCl 50 MG TAB PO PRN (21:28)
[2021-01-26 05:42] LABS: Hemoglobin 13.6 g/dL (12.0-16.0); Mean Corpuscular HGB CONC 32.9 g/dL (32.0-36.0); Mean Corpuscular Hemoglobin 29.9 pg (27.0-31.0); Mean Corpuscular Volume 90.8 fL (78.0-98.0); Mean Platelet Volume 8.5 fL (7.4-10.4); Platelet Count 330 thou/uL (130-400); RBC Distribution Width 12.5 % (11.5-14.5); Red Blood Cell (RBC) Count 4.56 mill/uL (4.20-5.40); White Blood Cell (WBC) Count 11.6 thou/uL (4.8-10.8)
[2021-01-26] MEDS: Morphine 2 MG/ML VIAL SLOW IVP PRN ×3 (06:31→17:21)
[2021-01-26] MEDS: Piperacillin/Tazobactam 3.375 GM in Sodium Chloride 0.9% 100 ML IVPB SCH ×4 (06:31→23:33)
[2021-01-26] MEDS: Ascorbic Acid 500 mg Chewable Tablet PO SCH (07:42)
[2021-01-26] MEDS: Enoxaparin Sodium 120 MG/0.8 ML SYRINGE SC SCH ×2 (07:42→20:01)
[2021-01-26] MEDS: Zinc Sulfate 220 MG CAP PO SCH (07:42)
[2021-01-26] MEDS: Famotidine/PF 20 mg/2ml Vial SLOW IVP SCH ×2 (07:42→20:03)
[2021-01-26] MEDS: methylPREDNISolone Sod Succ 40 MG VIAL IVP SCH ×2 (07:43→20:14)
[2021-01-26] MEDS: Benzonatate 100 MG CAP PO PRN ×2 (09:47→18:36)
[2021-01-26] MEDS: traMADol HCl 50 MG TAB PO PRN (20:02)
[2021-01-26] MEDS: traZODone HCl 50 MG TAB PO PRN (20:02)
[2021-01-26] MEDS: Acetaminophen 325 MG TAB PO PRN (20:02)
[2021-01-27] MEDS: traMADol HCl 50 MG TAB PO PRN (00:17)
[2021-01-27] MEDS: Acetaminophen 325 MG TAB PO PRN ×4 (00:18→19:51)
[2021-01-27] MEDS: Morphine 2 MG/ML VIAL SLOW IVP PRN ×4 (03:32→22:02)
[2021-01-27] MEDS: Piperacillin/Tazobactam 3.375 GM in Sodium Chloride 0.9% 100 ML IVPB SCH ×4 (06:00→22:06)
[2021-01-27] MEDS: Famotidine/PF 20 mg/2ml Vial SLOW IVP SCH ×2 (08:29→19:50)
[2021-01-27] MEDS: methylPREDNISolone Sod Succ 40 MG VIAL IVP SCH ×2 (08:29→19:50)
[2021-01-27] MEDS: Ascorbic Acid 500 mg Chewable Tablet PO SCH (08:30)
[2021-01-27] MEDS: Zinc Sulfate 220 MG CAP PO SCH (08:30)
[2021-01-27] MEDS: Enoxaparin Sodium 120 MG/0.8 ML SYRINGE SC SCH ×2 (08:30→19:51)
[2021-01-27] MEDS: guaiFENesin/Codeine 200 mg/20 mg 10 ml Cup PO PRN ×2 (08:36→17:00)
[2021-01-27] MEDS: Lorazepam 0.5 MG TAB PO PRN (11:44)
[2021-01-28] MEDS: Morphine 2 MG/ML VIAL SLOW IVP PRN ×2 (03:02→08:20)
[2021-01-28] MEDS: Piperacillin/Tazobactam 3.375 GM in Sodium Chloride 0.9% 100 ML IVPB SCH (06:06)
[2021-01-28] MEDS: Zinc Sulfate 220 MG CAP PO SCH (08:19)
[2021-01-28] MEDS: Famotidine/PF 20 mg/2ml Vial SLOW IVP SCH (08:19)
[2021-01-28] MEDS: Enoxaparin Sodium 120 MG/0.8 ML SYRINGE SC SCH (08:19)
[2021-01-28] MEDS: methylPREDNISolone Sod Succ 40 MG VIAL IVP SCH (08:19)
[2021-01-28] MEDS: Ascorbic Acid 500 mg Chewable Tablet PO SCH (08:19)
[2021-01-28] MEDS: guaiFENesin/Codeine 200 mg/20 mg 10 ml Cup PO PRN ×2 (10:53→22:06)
[2021-01-28] MEDS: Ketorolac Tromethamine 10 MG TAB PO PRN ×2 (14:37→21:02)
[2021-01-28] MEDS: Acetaminophen 325 MG TAB PO PRN (17:41)
[2021-01-28] MEDS: Apixaban 5 MG TAB PO SCH (20:17)
[2021-01-28] MEDS: Zolpidem Tartrate 5 MG TAB PO PRN (21:01)
[2021-01-28] MEDS ORDERED: HYDROcodone/Acetaminophen 5/325 mg Tablet PO SCH (22:30)
[2021-01-29] MEDS: Ketorolac Tromethamine 10 MG TAB PO PRN ×2 (05:18→15:27)
[2021-01-29] MEDS: Apixaban 5 MG TAB PO SCH ×2 (08:27→22:35)
[2021-01-29] MEDS: Ascorbic Acid 500 mg Chewable Tablet PO SCH (08:27)
[2021-01-29] MEDS: Zinc Sulfate 220 MG CAP PO SCH (08:28)
[2021-01-29] MEDS: Dexamethasone 4 MG TAB PO SCH (08:28)
[2021-01-29] MEDS: guaiFENesin/Codeine 200 mg/20 mg 10 ml Cup PO PRN (08:38)
[2021-01-29 09:12] LABS: Hemoglobin 13.6 g/dL (12.0-16.0); Mean Corpuscular HGB CONC 32.7 g/dL (32.0-36.0); Mean Corpuscular Volume 91.9 fL (78.0-98.0); Mean Platelet Volume 8.8 fL (7.4-10.4); Platelet Count 383 thou/uL (130-400); RBC Distribution Width 13.2 % (11.5-14.5); Red Blood Cell (RBC) Count 4.51 mill/uL (4.20-5.40); White Blood Cell (WBC) Count 15.9 thou/uL (4.8-10.8)
[2021-01-29 09:21] LABS: Large Platelets SLIGHT; Lymphocytes 49 % (21-51); MDiff Complete? YES; Monocytes 6 % (0-10); Neutrophil 43 % (42-75); Platelet Morphology Comment Appears Adequate; Reactive Lymphocytes 2 % (0-10); Vacuoles SLIGHT
[2021-01-29] MEDS ORDERED: Ibuprofen 200 MG TAB PO SCH (09:30)
[2021-01-29 09:52] LABS: Albumin 3.2 g/dL (3.5-5.0)
[2021-01-29 09:54] LABS: Calcium 8.6 mg/dL (7.8-10.44); Chloride 102 mmol/L (98-107); Potassium 4.5 mmol/L (3.5-5.1); Sodium 139 mmol/L (136-145)
[2021-01-29 09:55] LABS: Globulin 2.9 g/dL (2.4-3.5); Glucose 82 mg/dL (70-105); Protein, Total 6.1 g/dL (6.0-8.3)
[2021-01-29 09:56] LABS: Anion Gap 14 mmol/L (10-20); Carbon Dioxide 28 mmol/L (22-29)
[2021-01-29 09:57] LABS: Bilirubin, Total 0.8 mg/dL (0.2-1.2)
[2021-01-29 09:58] LABS: Alkaline Phosphatase 51 U/L (40-110); Calc. Creatinine Clearance 244 mL/min (70-130)
[2021-01-29 09:59] LABS: BUN (Urea Nitrogen) 16 mg/dL (7.0-18.7)
[2021-01-29 10:00] LABS: AST (SGOT) 30 U/L (5-34)
[2021-01-29 10:01] LABS: ALT (SGPT) 55 U/L (8-55)
[2021-01-29] MEDS: Fioricet 325/50/40 mg Tablet PO PRN (12:39)
[2021-01-29] MEDS: Ibuprofen 200 MG TAB PO PRN (14:03)
[2021-01-29] MEDS ORDERED: Morphine 2 MG/ML VIAL SLOW IVP PRN (17:16)
[2021-01-29] MEDS: HYDROcodone/Acetaminophen 5/325 mg Tablet PO PRN (19:53)
[2021-01-29] MEDS: Zolpidem Tartrate 5 MG TAB PO PRN (21:31)
[2021-01-30] MEDS: Fioricet 325/50/40 mg Tablet PO PRN (00:40)
[2021-01-30] MEDS: HYDROcodone/Acetaminophen 5/325 mg Tablet PO PRN ×4 (03:48→20:45)
[2021-01-30] MEDS: Ibuprofen 200 MG TAB PO PRN ×2 (05:39→13:19)
[2021-01-30] MEDS: Benzonatate 100 MG CAP PO PRN (05:40)
[2021-01-30] MEDS ORDERED: Sodium Chloride 0.9% 1,000 ML IV SCH (07:30)
[2021-01-30] MEDS: Zinc Sulfate 220 MG CAP PO SCH (07:43)
[2021-01-30] MEDS: Ascorbic Acid 500 mg Chewable Tablet PO SCH (07:43)
[2021-01-30] MEDS: Dexamethasone 4 MG TAB PO SCH (07:43)
[2021-01-30] MEDS: Apixaban 5 MG TAB PO SCH ×2 (07:44→20:43)
[2021-01-30 08:04] LABS: Mean Corpuscular Hemoglobin 30.4 pg (27.0-31.0); Mean Corpuscular Volume 92.3 fL (78.0-98.0); Mean Platelet Volume 8.3 fL (7.4-10.4); Platelet Count 342 thou/uL (130-400); RBC Distribution Width 12.8 % (11.5-14.5); Red Blood Cell (RBC) Count 4.27 mill/uL (4.20-5.40); White Blood Cell (WBC) Count 13.4 thou/uL (4.8-10.8)
[2021-01-30 08:10] LABS: Anion Gap 18 mmol/L (10-20); BUN (Urea Nitrogen) 13 mg/dL (7.0-18.7); Calc. Creatinine Clearance 287 mL/min (70-130); Calcium 8.6 mg/dL (7.8-10.44); Carbon Dioxide 22 mmol/L (22-29); Chloride 101 mmol/L (98-107); Glucose 80 mg/dL (70-105); Potassium 4.4 mmol/L (3.5-5.1); Sodium 137 mmol/L (136-145)
[2021-01-30 08:17] LABS: Lymphocytes 26 % (21-51); MDiff Complete? YES; Monocytes 7 % (0-10); Neutrophil 64 % (42-75); Platelet Morphology Comment Appears Adequate; Reactive Lymphocytes 3 % (0-10)
[2021-01-30] MEDS ORDERED: Iopamidol-370 76% 500 ML 1 ML ONE (12:07)
[2021-01-30] MEDS: guaiFENesin/Codeine 200 mg/20 mg 10 ml Cup PO PRN (20:43)
[2021-01-30] MEDS: Zolpidem Tartrate 5 MG TAB PO PRN (20:43)
[2021-01-31] MEDS: HYDROcodone/Acetaminophen 5/325 mg Tablet PO PRN ×4 (03:03→20:56)
[2021-01-31] MEDS: Ascorbic Acid 500 mg Chewable Tablet PO SCH (09:10)
[2021-01-31] MEDS: Dexamethasone 4 MG TAB PO SCH (09:11)
[2021-01-31] MEDS: Zinc Sulfate 220 MG CAP PO SCH (09:11)
[2021-01-31] MEDS: Apixaban 5 MG TAB PO SCH ×2 (09:11→20:55)
[2021-01-31] MEDS: guaiFENesin/Codeine 200 mg/20 mg 10 ml Cup PO PRN ×3 (09:11→20:58)
[2021-01-31] MEDS: Ondansetron PF 4 MG/2 ML Vial IVP PRN (10:14)
[2021-01-31] MEDS: Acetaminophen 325 MG TAB PO PRN (14:08)
[2021-01-31] MEDS: Zolpidem Tartrate 5 MG TAB PO PRN (20:55)
[2021-02-01] MEDS: HYDROcodone/Acetaminophen 5/325 mg Tablet PO PRN ×3 (03:01→15:14)
[2021-02-01] MEDS: guaiFENesin/Codeine 200 mg/20 mg 10 ml Cup PO PRN (05:30)
[2021-02-01] MEDS: Ascorbic Acid 500 mg Chewable Tablet PO SCH (07:51)
[2021-02-01] MEDS: Dexamethasone 4 MG TAB PO SCH (07:52)
[2021-02-01] MEDS: Apixaban 5 MG TAB PO SCH (07:52)
[2021-02-01] MEDS: Zinc Sulfate 220 MG CAP PO SCH (07:52)
[2021-02-01 08:43] LABS: Anion Gap 15 mmol/L (10-20); BUN (Urea Nitrogen) 17 mg/dL (7.0-18.7); Calc. Creatinine Clearance 251 mL/min (70-130); Carbon Dioxide 28 mmol/L (22-29); Chloride 103 mmol/L (98-107); Glucose 80 mg/dL (70-105); Potassium 5.3 mmol/L (3.5-5.1); Sodium 141 mmol/L (136-145)
[2021-02-01] MEDS: Ondansetron PF 4 MG/2 ML Vial IVP PRN (08:45)
[2021-02-01 09:17] LABS: Band 1 % (5-11); Lymphocytes 62 % (21-51); MDiff Complete? YES; Mean Corpuscular HGB CONC 32.7 g/dL (32.0-36.0); Mean Corpuscular Hemoglobin 30.2 pg (27.0-31.0); Mean Corpuscular Volume 92.2 fL (78.0-98.0); Mean Platelet Volume 8.4 fL (7.4-10.4); Monocytes 5 % (0-10); Neutrophil 32 % (42-75); Platelet Count 403 thou/uL (130-400); Platelet Morphology Comment Appears Adequate; RBC Distribution Width 13.2 % (11.5-14.5); RBC Morphology Normal; White Blood Cell (WBC) Count 13.5 thou/uL (4.8-10.8)
[2021-02-01] MEDS: Acetaminophen 325 MG TAB PO PRN (11:47)
[2021-02-01 16:22] VITALS: BP 141/81; TEMP 99
== END 2021-02-01 18:20 | disposition home or self-care (01) | DRG 871 ==
LOC: ERS 18:43 → T4-A 23:20
PROVIDERS: ADMIT Internal Medicine; ATTEND Internal Medicine
PROC: XW033E5 Introduction of Remdesivir Anti-infective into Peripheral Vein, Percutaneous Approach, New Technology Group 5 (ICD-10-PCS; principal; 2021-01-17)
PROC: 5A0955A Assistance with Respiratory Ventilation, Greater than 96 Consecutive Hours, High Flow/Velocity Cannula (ICD-10-PCS; 2021-01-17)
DX: A41.89 Other specified sepsis (principal); U07.1 COVID-19; J12.82 Pneumonia due to coronavirus disease 2019; J96.01 Acute respiratory failure with hypoxia; I26.99 Other pulmonary embolism without acute cor pulmonale; I82.432 Acute embolism and thrombosis of left popliteal vein; Z68.42 Body mass index [BMI] 45.0-49.9, adult; I82.431 Acute embolism and thrombosis of right popliteal vein; E66.01 Morbid (severe) obesity due to excess calories; G40.909 Epilepsy, unspecified, not intractable, without status epilepticus; J45.909 Unspecified asthma, uncomplicated; E87.6 Hypokalemia; R74.01 Elevation of levels of liver transaminase levels; G47.00 Insomnia, unspecified; Z88.5 Allergy status to narcotic agent; Z91.040 Latex allergy status; Z90.49 Acquired absence of other specified parts of digestive tract; Z79.899 Other long term (current) drug therapy; T38.0X5A Adverse effect of glucocorticoids and synthetic analogues, initial encounter; Y92.230 Patient room in hospital as the place of occurrence of the external cause
CPT/HCPCS: 36415; 36416; 36600; 71045; 71275; 80048; 80053; 80076; 81001; 81003; 81015; 82728; 82805; 83605; 83690; 83735; 83880; 84132; 84484; 84703; 85025; 85027; 85610; 85730; 86140; 86141; 87040; 87086; 93005; 93010; 94760; 96365; 96367; 96375; J0456; J0696; J1100; J1650; J1885; J2270; J2405; J2543; J2550; J2920; J2930; J3480; J3490; J7050; J8540; Q9967; S0028

== ENCOUNTER 2021-02-09 10:49 | Emergency (ER) | payer MEDICAID, OTHER, SELFPAY ==
[2021-02-09 11:46] LABS: #Basophils 0.1 thou/uL (0.0-0.2); #Eosinphils 0.2 thou/uL (0.0-0.7); #Lymphocytes 3.1 thou/uL (1.20-3.40); #Monocytes 0.5 thou/uL (0.11-0.59); #Neutrophils 4.8 thou/uL (1.40-6.50); %Basophils 0.7 % (0.0-1.0); %Eosinophils 1.9 % (0.0-10.0); %Lymphocytes 35.7 % (21.0-51.0); %Monocytes 5.3 % (0.0-10.0); %Neutrophils 56.4 % (42.0-75.0); Hemoglobin 12.2 g/dL (12.0-16.0); Mean Corpuscular HGB CONC 33.2 g/dL (32.0-36.0); Mean Corpuscular Hemoglobin 30.6 pg (27.0-31.0); Mean Corpuscular Volume 92.4 fL (78.0-98.0); Mean Platelet Volume 7.2 fL (7.4-10.4); Platelet Count 232 thou/uL (130-400); RBC Distribution Width 14.8 % (11.5-14.5); White Blood Cell (WBC) Count 8.6 thou/uL (4.8-10.8)
[2021-02-09 11:57] LABS: BHCG - Serum Negative (NEGATIVE); Pregs Control Background? CLEAR/WHITE (CLR/WHITE); Pregs Control Bar Appear? YES (CONTROL BAR)
[2021-02-09 13:36] LABS: ALT (SGPT) 38 U/L (8-55); AST (SGOT) 18 U/L (5-34); Albumin 3.4 g/dL (3.5-5.0); Alkaline Phosphatase 76 U/L (40-110); Anion Gap 14 mmol/L (10-20); BUN (Urea Nitrogen) 10 mg/dL (7.0-18.7); Bilirubin, Total 0.4 mg/dL (0.2-1.2); Calc. Creatinine Clearance 0 mL/min (70-130); Calcium 8.9 mg/dL (7.8-10.44); Carbon Dioxide 24 mmol/L (22-29); Chloride 104 mmol/L (98-107); Globulin 2.8 g/dL (2.4-3.5); Glucose 108 mg/dL (70-105); Potassium 3.8 mmol/L (3.5-5.1); Protein, Total 6.2 g/dL (6.0-8.3); Sodium 138 mmol/L (136-145)
== END 2021-02-09 13:40 | disposition home or self-care (01) ==
LOC: ERS 10:49
DX: R07.2 Precordial pain (principal); J45.909 Unspecified asthma, uncomplicated; I10 Essential (primary) hypertension; G40.909 Epilepsy, unspecified, not intractable, without status epilepticus; I82.409 Acute embolism and thrombosis of unspecified deep veins of unspecified lower extremity; Z79.899 Other long term (current) drug therapy; Z79.01 Long term (current) use of anticoagulants; Z86.16 Personal history of COVID-19
CPT/HCPCS: 36415; 71045; 71275; 80053; 84484; 84703; 85025; 85379; 93005; Q9967

== ENCOUNTER 2021-05-02 13:56 | Emergency (ER) | payer OTHER | END 2021-05-02 14:53 | disposition home or self-care (01) | LOC: ERS 13:56 | DX: R05 Cough (principal); I10 Essential (primary) hypertension; G40.909 Epilepsy, unspecified, not intractable, without status epilepticus; Z87.891 Personal history of nicotine dependence; Z79.01 Long term (current) use of anticoagulants; Z79.899 Other long term (current) drug therapy | CPT/HCPCS: 99283 ==

== ENCOUNTER 2021-07-27 09:06 | Emergency (ER) | payer OTHER ==
[2021-07-27] MEDS ORDERED: Ibuprofen 800 MG TAB ONE (09:50)
[2021-07-27] MEDS ORDERED: Albuterol 200 PUFF (6.7GM INHALER) ONE (09:50)
[2021-07-27] MEDS ORDERED: Acetaminophen 500 MG TAB ONE (09:50)
[2021-07-27] MEDS ORDERED: Dexamethasone 10 MG/ML VIAL ONE (10:55)
[2021-07-27 18:42] LABS: SARS-CoV-2 PCR by NAA Not Detected (NotDetected)
== END 2021-07-27 11:47 | disposition home or self-care (01) ==
LOC: ERS 09:06
DX: B34.9 Viral infection, unspecified (principal); J45.909 Unspecified asthma, uncomplicated; I10 Essential (primary) hypertension; F17.210 Nicotine dependence, cigarettes, uncomplicated; Z20.822 Contact with and (suspected) exposure to COVID-19; Z79.01 Long term (current) use of anticoagulants
CPT/HCPCS: 36415; 71045; 84484; 93005; J1100; U0003; U0005

== ENCOUNTER 2021-10-05 13:58 | Emergency (ER) | payer OTHER ==
[2021-10-05 14:52] LABS: #Basophils 0.1 thou/uL (0.0-0.2); #Eosinphils 0.1 thou/uL (0.0-0.7); #Monocytes 0.7 thou/uL (0.11-0.59); #Neutrophils 2.6 thou/uL (1.40-6.50); %Basophils 1.6 % (0.0-1.0); %Eosinophils 2.7 % (0.0-10.0); %Lymphocytes 37.1 % (21.0-51.0); %Neutrophils 46.6 % (42.0-75.0); Hemoglobin 13.5 g/dL (12.0-16.0); Mean Corpuscular HGB CONC 32.9 g/dL (32.0-36.0); Mean Corpuscular Hemoglobin 30.8 pg (27.0-31.0); Mean Corpuscular Volume 93.7 fL (78.0-98.0); Mean Platelet Volume 7.4 fL (7.4-10.4); Platelet Count 365 thou/uL (130-400); RBC Distribution Width 12.9 % (11.5-14.5); Red Blood Cell (RBC) Count 4.37 mill/uL (4.20-5.40); White Blood Cell (WBC) Count 5.5 thou/uL (4.8-10.8)
[2021-10-05 14:59] LABS: BHCG - Serum Negative (NEGATIVE); Pregs Control Background? CLEAR/WHITE (CLR/WHITE); Pregs Control Bar Appear? YES (CONTROL BAR)
[2021-10-05 15:15] LABS: ALT (SGPT) 20 U/L (8-55); AST (SGOT) 24 U/L (5-34); Albumin 3.4 g/dL (3.5-5.0); Alkaline Phosphatase 67 U/L (40-110); Anion Gap 14 mmol/L (10-20); BUN (Urea Nitrogen) 14 mg/dL (7.0-18.7); Bilirubin, Total 0.2 mg/dL (0.2-1.2); Calc. Creatinine Clearance 0 mL/min (70-130); Calcium 8.9 mg/dL (7.8-10.44); Carbon Dioxide 21 mmol/L (22-29); Chloride 107 mmol/L (98-107); Globulin 3.7 g/dL (2.4-3.5); Glucose 91 mg/dL (70-105); Potassium 4.6 mmol/L (3.5-5.1); Protein, Total 7.1 g/dL (6.0-8.3); Sodium 137 mmol/L (136-145)
[2021-10-05] MEDS ORDERED: methylPREDNISolone Sod Succ/PF 125 MG/2 ML VIAL ONE (15:38)
[2021-10-05 16:16] LABS: Bilirubin Negative (Negative); Blood, Urine Negative (Negative); Clarity Clear (Clear); Glucose, Urine (Dipstick) Normal (Negative); Ketone, Urine Negative (Negative); Leukocyte Negative Leu/uL (Negative); Nitrite Negative (Negative); Protein, Urine (Dipstick) Negative (Neg-Trace); Specific Gravity, Urine 1.026 (1.002-1.036); Urobilinogen Normal mg/dL (Less than 2)
== END 2021-10-05 17:27 | disposition home or self-care (01) ==
LOC: ERS 13:58
DX: J45.909 Unspecified asthma, uncomplicated (principal); J18.9 Pneumonia, unspecified organism; I10 Essential (primary) hypertension; G40.909 Epilepsy, unspecified, not intractable, without status epilepticus; Z86.16 Personal history of COVID-19; Z87.891 Personal history of nicotine dependence; Z79.899 Other long term (current) drug therapy
CPT/HCPCS: 36415; 71045; 71275; 80053; 81003; 84484; 84703; 85025; 85379; 93005; 96374; J2930; J7620; Q9967

== ENCOUNTER 2021-11-18 16:19 | Emergency (ER) | payer OTHER ==
[2021-11-18 17:45] LABS: #Basophils 0.1 thou/uL (0.0-0.2); #Eosinphils 0.1 thou/uL (0.0-0.7); #Lymphocytes 3.3 thou/uL (1.20-3.40); #Monocytes 0.4 thou/uL (0.11-0.59); #Neutrophils 4.7 thou/uL (1.40-6.50); %Basophils 1.2 % (0.0-1.0); %Eosinophils 1.2 % (0.0-10.0); %Lymphocytes 38.1 % (21.0-51.0); %Monocytes 4.6 % (0.0-10.0); Hemoglobin 13.6 g/dL (12.0-16.0); Mean Corpuscular HGB CONC 32.9 g/dL (32.0-36.0); Mean Corpuscular Hemoglobin 30.8 pg (27.0-31.0); Mean Corpuscular Volume 93.6 fL (78.0-98.0); Mean Platelet Volume 7.2 fL (7.4-10.4); Platelet Count 412 thou/uL (130-400); RBC Distribution Width 12.6 % (11.5-14.5); Red Blood Cell (RBC) Count 4.42 mill/uL (4.20-5.40); White Blood Cell (WBC) Count 8.6 thou/uL (4.8-10.8)
[2021-11-18 17:48] LABS: BHCG - Serum POSITIVE (NEGATIVE); Pregs Control Background? CLEAR/WHITE (CLR/WHITE); Pregs Control Bar Appear? YES (CONTROL BAR)
[2021-11-18 18:01] LABS: Bacteria/HPF None Seen HPF (None Seen); Bilirubin Negative (Negative); Blood, Urine Negative (Negative); Clarity Clear (Clear); Glucose, Urine (Dipstick) Normal (Negative); Ketone, Urine Negative (Negative); Leukocyte 25 Leu/uL (Negative); Nitrite Negative (Negative); Protein, Urine (Dipstick) Negative (Neg-Trace); RBC/HPF 0-3 HPF (0-3); Specific Gravity, Urine 1.015 (1.002-1.036); Urobilinogen Normal mg/dL (Less than 2); WBC/HPF 0-3 HPF (0-3)
== END 2021-11-18 19:19 | disposition home or self-care (01) ==
LOC: ERS 16:19
DX: O20.0 Threatened abortion (principal); O99.511 Diseases of the respiratory system complicating pregnancy, first trimester; J45.909 Unspecified asthma, uncomplicated; R05.9 Cough, unspecified; O10.011 Pre-existing essential hypertension complicating pregnancy, first trimester; Z3A.01 Less than 8 weeks gestation of pregnancy; Z79.899 Other long term (current) drug therapy
CPT/HCPCS: 36415; 76856; 81003; 81015; 84702; 84703; 85025; 86900; 86901

== ENCOUNTER 2021-12-04 10:54 | Emergency (ER) | payer OTHER ==
[2021-12-04] MEDS ORDERED: Acetaminophen 500 MG TAB ONE (13:19)
[2021-12-04] MEDS ORDERED: Albuterol 200 PUFF (6.7GM INHALER) ONE (13:19)
[2021-12-04] MEDS ORDERED: predniSONE 20 MG TAB ONE (13:19)
[2021-12-04 13:51] LABS: Bilirubin Negative (Negative); Blood, Urine Negative (Negative); Glucose, Urine (Dipstick) Negative (Negative); Ketone, Urine Trace mg/dL (Negative); Leukocyte Negative (Negative); Nitrite Negative (Negative); Protein, Urine (Dipstick) Negative (Neg-Trace); Urobilinogen 0.2 mg/dL (Less than 2)
[2021-12-04 13:57] LABS: Clarity Clear (Clear); RBC/HPF None Seen HPF (0-3); Specific Gravity, Urine 1.018 (1.002-1.036); WBC/HPF None Seen HPF (0-3)
[2021-12-04 13:58] LABS: Bacteria/HPF None Seen HPF (None Seen)
[2021-12-04 22:52] LABS: SARS-CoV-2 PCR by NAA DETECTED (NotDetected)
== END 2021-12-04 14:49 | disposition home or self-care (01) ==
LOC: ERS 10:54
DX: O98.511 Other viral diseases complicating pregnancy, first trimester (principal); U07.1 COVID-19; O99.511 Diseases of the respiratory system complicating pregnancy, first trimester; J45.21 Mild intermittent asthma with (acute) exacerbation; O21.9 Vomiting of pregnancy, unspecified; O16.1 Unspecified maternal hypertension, first trimester; O99.351 Diseases of the nervous system complicating pregnancy, first trimester; G40.909 Epilepsy, unspecified, not intractable, without status epilepticus; Z3A.01 Less than 8 weeks gestation of pregnancy; Z79.899 Other long term (current) drug therapy
CPT/HCPCS: 71045; 81003; 93005; J7512; U0003; U0005

== ENCOUNTER 2022-02-19 23:06 | Emergency (ER) | payer OTHER ==
[2022-02-19 23:58] LABS: #Basophils 0.1 thou/uL (0.0-0.2); #Eosinphils 0.1 thou/uL (0.0-0.7); #Lymphocytes 3.4 thou/uL (1.20-3.40); #Monocytes 0.6 thou/uL (0.11-0.59); #Neutrophils 3.7 thou/uL (1.40-6.50); %Basophils 0.7 % (0.0-1.0); %Eosinophils 1.3 % (0.0-10.0); %Lymphocytes 43.7 % (21.0-51.0); %Monocytes 7.5 % (0.0-10.0); %Neutrophils 46.9 % (42.0-75.0); Hemoglobin 11.9 g/dL (12.0-16.0); Mean Corpuscular HGB CONC 33.8 g/dL (32.0-36.0); Mean Corpuscular Hemoglobin 31.3 pg (27.0-31.0); Mean Corpuscular Volume 92.7 fL (78.0-98.0); Mean Platelet Volume 7.2 fL (7.4-10.4); Platelet Count 376 thou/uL (130-400); RBC Distribution Width 12.2 % (11.5-14.5); Red Blood Cell (RBC) Count 3.81 mill/uL (4.20-5.40); White Blood Cell (WBC) Count 7.8 thou/uL (4.8-10.8)
[2022-02-20 00:16] LABS: ALT (SGPT) 8 U/L (8-55); AST (SGOT) 9 U/L (5-34); Albumin 3.3 g/dL (3.5-5.0); Alkaline Phosphatase 56 U/L (40-110); Anion Gap 14 mmol/L (10-20); BUN (Urea Nitrogen) 6 mg/dL (7.0-18.7); Bilirubin, Total 0.2 mg/dL (0.2-1.2); Calc. Creatinine Clearance 0 mL/min (70-130); Calcium 9.1 mg/dL (7.8-10.44); Carbon Dioxide 19 mmol/L (22-29); Chloride 107 mmol/L (98-107); Globulin 3.4 g/dL (2.4-3.5); Glucose 82 mg/dL (70-105); Potassium 3.8 mmol/L (3.5-5.1); Protein, Total 6.7 g/dL (6.0-8.3); Sodium 136 mmol/L (136-145)
[2022-02-20] MEDS ORDERED: Ondansetron ODT 8 MG TAB ONE (00:23)
[2022-02-20] MEDS ORDERED: Acetaminophen 325 MG TAB ONE (00:27)
[2022-02-20] MEDS ORDERED: lamoTRIgine 25 MG TAB PO SCH (00:30)
[2022-02-20 00:44] LABS: Bilirubin Negative (Negative); Blood, Urine Negative (Negative); Clarity Clear (Clear); Glucose, Urine (Dipstick) Normal (Negative); Ketone, Urine Negative (Negative); Leukocyte Negative Leu/uL (Negative); Nitrite Negative (Negative); Protein, Urine (Dipstick) Negative (Neg-Trace); Specific Gravity, Urine 1.008 (1.002-1.036); Urobilinogen Normal mg/dL (Less than 2); pH, Urine 6.5 (5.0-9.0)
== END 2022-02-20 01:30 | disposition home or self-care (01) ==
LOC: ERS 23:06
DX: O99.352 Diseases of the nervous system complicating pregnancy, second trimester (principal); G40.909 Epilepsy, unspecified, not intractable, without status epilepticus; O13.2 Gestational [pregnancy-induced] hypertension without significant proteinuria, second trimester; Z79.82 Long term (current) use of aspirin; Z79.01 Long term (current) use of anticoagulants; Z86.711 Personal history of pulmonary embolism; Z87.891 Personal history of nicotine dependence; Z3A.18 18 weeks gestation of pregnancy
CPT/HCPCS: 36415; 80053; 81003; 84146; 85025; 99284; Q0162

== ENCOUNTER 2022-10-28 09:42 | Outpatient (CLI) | payer OTHER | END 2022-10-28 09:43 | disposition home or self-care (01) | LOC: SCSMRI 09:42 | PROVIDERS: ATTEND Psychiatry & Neurology Neurology | DX: R56.9 Unspecified convulsions (principal); R90.82 White matter disease, unspecified; R59.0 Localized enlarged lymph nodes | CPT/HCPCS: 70553 ==